=== PATIENT | male | born 1985 ===

== ENCOUNTER 2016-11-17 11:48 | Emergency (ER) | payer OTHER ==
[2016-11-17 11:50] VITALS: BMI 21.8
[2016-11-17 11:51] VITALS: BP 128/74; PULSE 62; RESP 19; TEMP 97.9; O2SAT 99
--- NOTE | 2016-11-17 12:15 | ED PDOC ---
HPI: General Adult Time Seen by Provider: 11/17/16 11:57 Chief Complaint (Provider): left eye pain History Per: Patient History/Exam Limitations: no limitations Additional Complaint(s): 31yo male comes to the ED complaining of 4 day of left eye pain. States he had left eye cataract repair several years ago. Denies changes in vision, photophobia, lacrimation, redness or swelling to the eye. he has no taken anything for pain. Past Medical History Reviewed: Historical Data, Nursing Documentation, Vital Signs Vital Signs: Last Vital Signs Temp 97.9 F 11/17/16 11:50 Pulse 62 11/17/16 11:50 Resp 19 11/17/16 11:50 BP 128/74 11/17/16 11:50 Pulse Ox 99 11/17/16 12:31 - Medical History PMH: Seizures Denies: Diabetes, Hepatitis, HIV, HTN, Sexually Transmitted Disease - Surgical History Other surgeries: surgical repair of left eye cataract - Family History Family History: States: Unknown Family Hx - Home Medications Home Medications: Ambulatory Orders Medication Instructions Recorded Divalproex Sodium [Divalproex 500 mg PO DAILY 06/08/16 Sodium ER] Amoxicillin/Clavulanate [Augmentin 1 tab PO BID #14 tab 11/17/16 875 MG-125 MG] Methylprednisolone [Medrol Dose 4 mg PO DAILY #21 mg 11/17/16 Pack (21 tabs)] - Allergies Allergies/Adverse Reactions: Allergies Allergy/AdvReac Type Severity Reaction Status Date / Time No Known Allergies Allergy Verified 06/08/16 09:35 Review of Systems ROS Statement: Except As Marked, All Systems Reviewed And Found Negative Eyes: Positive for: Pain. Negative for: Vision Change, Redness ( or swelling), Other (lacrimation) Physical Exam - Reviewed Nursing Documentation Reviewed: Yes Vital Signs Reviewed: Yes - Physical Exam Appears: Positive for: Well, Non-toxic, No Acute Distress Head Exam: Positive for: ATRAUMATIC, NORMAL INSPECTION, NORMOCEPHALIC Skin: Positive for: Warm, Dry Eye Exam: Positive for: EOMI, PERRL - ECG O2 Sat by Pulse Oximetry: 99 (RA) Pulse Ox Interpretation: Normal Medical Decision Making Medical Decision Makin will obtain visual acuity. CT Head w/o, XR Left orbit, Percocet ordered. CT of Head and Orbits: IMPRESSION: No acute intracranial pathology identified. Partial opacification of the left frontal sinus and anterior left ethmoid air cells. Correlate clinically for sinusitis. Suspect right posterior fossa arachnoid cyst. Stared on Augmentin and Medrol dose pack for sinuses Disposition - Clinical Impression Clinical Impression: Sinusitis - Patient ED Disposition Is Patient to be Admitted: No - Disposition Disposition: Routine/Home Disposition Time: 15:50 Condition: STABLE Prescriptions: Amoxicillin/Clavulanate [Augmentin 875 MG-125 MG] 1 tab PO BID #14 tab Methylprednisolone [Medrol Dose Pack (21 tabs)] 4 mg PO DAILY #21 mg Instructions: Sinusitis (ED) - POA Present On Arrival: None Additional Comments - Additional Comments Additional Comments: Scribe Attestation: Documented by Peter Larson acting as a scribe for Josie Cruz PA-C. Provider Scribe Attestation: All medical record entries made by the Scribe were at my direction and personally dictated by me. I have reviewed the chart and agree that the record accurately reflects my personal performance of the history, physical exam, medical decision making, and the department course for this patient. I have also personally directed, reviewed, and agree with the discharge instructions and disposition.
[2016-11-17] MEDS: Oxycodone/Acetaminophen 5/325 mg Tab PO STA (12:44)
--- NOTE | 2016-11-17 14:36 | CT ---
PROCEDURE: CT HEAD WITHOUT CONTRAST. HISTORY: Headache left eye pain COMPARISON: Noncontrast head CT performed 06/07/16 TECHNIQUE: Axial computed tomography images were obtained through the head/brain without intravenous contrast. Radiation dose: Total exam DLP = 909.51 mGy-cm. This CT exam was performed using one or more of the following dose reduction techniques: Automated exposure control, adjustment of the mA and/or kV according to patient size, and/or use of iterative reconstruction technique. FINDINGS: HEMORRHAGE: No intracranial hemorrhage. BRAIN: No mass effect or edema. Suspect right posterior fossa arachnoid cyst. No atrophy or chronic microvascular ischemic changes.Please note that MRI with diffusion imaging is more sensitive in the detection of acute ischemic event. VENTRICLES: No hydrocephalus. CALVARIUM: Unremarkable. PARANASAL SINUSES: Partial opacification of the left frontal sinus and anterior left ethmoid air cells. The remainder of the visualized paranasal sinuses appear clear. MASTOID AIR CELLS: Unremarkable as visualized. No inflammatory changes. OTHER FINDINGS: None. IMPRESSION: No acute intracranial pathology identified. Partial opacification of the left frontal sinus and anterior left ethmoid air cells. Correlate clinically for sinusitis. Suspect right posterior fossa arachnoid cyst.
--- NOTE | 2016-11-17 18:08 | CT ---
PROCEDURE: CT ORBITS WITHOUT CONTRAST. HISTORY: left eye pain, hx of surgery COMPARISON: None available. TECHNIQUE: Axial CT images of the orbits were obtained. Coronal and sagittal reformats were generated. Radiation dose: Total exam DLP = 790.4 mGy-cm. This CT exam was performed using one or more of the following dose reduction techniques: Automated exposure control, adjustment of the mA and/or kV according to patient size, and/or use of iterative reconstruction technique. FINDINGS: RIGHT ORBIT: RIGHT BONY ORBIT: Normal. RIGHT INTRAORBITAL STRUCTURES: Globe: Normal. Extraocular muscles: Normal. Post septal space: Normal. Optic Nerve: Normal. Lacrimal Apparatus: Normal. RIGHT PRESEPTAL SOFT TISSUES: Normal. LEFT ORBIT: LEFT BONY ORBIT: Normal. LEFT INTRAORBITAL STRUCTURES: Globe: Normal. Extraocular muscles: Normal. Post septal space: Normal Optic Nerve: Normal. . Lacrimal Apparatus: Normal. LEFT PRESEPTAL SOFT TISSUES: Normal. OTHER: There is moderate mucosal thickening in the left frontal sign with almost complete opacification of the sinus. 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 Small size left maxillary sinus with almost complete opacification of the left maxillary sinus suggestive of chronic sinusitis. IMPRESSION: No evidence of acute pathology at the left orbit. Almost complete opacification of the left maxillary and left frontal sinuses. Thick wall small size left maxillary sinus suggestive of chronic sinusitis. 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
== END 2016-11-17 18:10 | disposition home or self-care (01) ==
LOC: H.ER 11:48
DX: J32.9 Chronic sinusitis, unspecified (principal); R51 Headache